=== PATIENT | female | born 1990 | race African-American/Black ===

== ENCOUNTER 2019-08-11 15:43 | Emergency (ER) | payer OTHER, MEDICAID ==
[~2019-08-11] VITALS: Ht 160 cm; Wt 113.0 kg
[2019-08-11] MEDS ORDERED: ACETAMINOPHEN 500MG TABLET PO ONE (18:15)
[2019-08-11] MEDS ORDERED: ASPIRIN 81MG TABLET PO ONE (18:15)
[2019-08-11 18:31] LABS: BASOPHILS % 0.9 % (0.0-2.0); EOSINOPHILS % 0.8 % (0.0-5.0); HEMATOCRIT. 30.1 % (36.0-48.0); HEMOGLOBIN. 9.1 g/dL (12.0-16.0); LYMPHOCYTES % 31.8 % (20.0-50.0); MEAN CORPUSCULAR HEMOGLOBIN 16.4 pg (28.0-32.0); MEAN CORPUSCULAR VOLUME 54.1 fL (81.0-99.0); MEAN PLATELET VOLUME 8.6 fl (7.4-10.4); MONOCYTES % 5.6 % (2.0-8.0); NEUTROPHILS % 60.9 % (40.0-76.0); PLATELET 469 x1000/uL (130-400); RED BLOOD CELL COUNT 5.57 mill/uL (4.2-5.4); RED CELL DISTRIBUTION WIDTH 21.9 % (11.6-14.6)
[2019-08-11 18:38] LABS: CHLORIDE 105 mEq/L (98-107)
[2019-08-11 18:42] LABS: D-DIMER 0.42 mg/L FEU (<0.50); PARTIAL THROMBOPLASTIN TIME 25.3 sec (23.4-31.0)
[2019-08-11 19:09] LABS: PLATELET ESTIMATE INCREASED
[2019-08-11 19:58] VITALS: BP 138/78
== END 2019-08-11 20:01 | disposition home or self-care (01) ==
LOC: ER 15:43
DX: F41.9 Anxiety disorder, unspecified (principal); F12.10 Cannabis abuse, uncomplicated; Z88.8 Allergy status to other drugs, medicaments and biological substances
CPT/HCPCS: 36415; 71045; 80053; 83880; 84484; 85025; 85379; 85610; 85730; 93005; 99284; Z7610

== ENCOUNTER 2025-03-09 00:18 | Emergency (ER) | payer MEDICAID, OTHER ==
[~2025-03-09] VITALS: Ht 157.5 cm; Wt 80.0 kg
[2025-03-09 00:21] VITALS: TEMP 36.9; O2SAT 100
[2025-03-09] MEDS ORDERED: IBUP-2029 MT (00:54)
[2025-03-09] MEDS: IBUPROFEN 600MG TABLET PO ONE (01:55)
[2025-03-09 02:19] VITALS: BP 133/85; PULSE 86; RESP 16; O2SAT 100
== END 2025-03-09 02:19 | disposition home or self-care (01) ==
LOC: ER 00:18
DX: S20.01XA Contusion of right breast, initial encounter (principal); S60.222A Contusion of left hand, initial encounter; F12.10 Cannabis abuse, uncomplicated; Z88.9 Allergy status to unspecified drugs, medicaments and biological substances; V49.40XA Driver injured in collision with unspecified motor vehicles in traffic accident, initial encounter; Y93.89 Activity, other specified; Y92.89 Other specified places as the place of occurrence of the external cause; Y99.8 Other external cause status
CPT/HCPCS: 71045; 73130; 99284